=== PATIENT | male | born 1980 | race Caucasian/White ===

== ENCOUNTER 2020-11-26 18:29 | Emergency (ER) | payer OTHER ==
[~2020-11-26] VITALS: Ht 188 cm; Wt 103.0 kg
[2020-11-26] MEDS ORDERED: NORCO 5/325MG TABLET (BULK FOR ED) PO ONE (19:40)
[2020-11-26] MEDS ORDERED: HYDR-3713 PO (19:41)
[2020-11-26 20:22] VITALS: BP 127/77
--- NOTE | 2020-11-27 07:39 | REP ---
INDICATION: injury, pain COMPARISON: None. TECHNIQUE: Four views. FINDINGS: There is a nondisplaced boxer's fracture in the neck of the 5th digit metacarpal with the dorsal angulation at the fracture site. There is no dislocation. IMPRESSION: Fifth digit metacarpal boxer's fracture as described. <Electronically signed by Juan Antonio Stubbs > 11/27/20 0781
== END 2020-11-26 20:32 | disposition home or self-care (01) ==
LOC: M ED 18:29
DX: S62.306A Unspecified fracture of fifth metacarpal bone, right hand, initial encounter for closed fracture (principal); W22.8XXA Striking against or struck by other objects, initial encounter; Y92.89 Other specified places as the place of occurrence of the external cause; Y99.0 Civilian activity done for income or pay

== ENCOUNTER → 2021-04-13 | Outpatient (CLI) | payer OTHER ==
[~2021-04-13] MED LIST: HYDR-3713 PO; PROHANCE 279.3MG/ML 15ML VIAL As Ordered ONE; PROHANCE 279.3MG/ML 5ML VIAL As Ordered ONE
== END ==
LOC: M RAD 17:32
PROVIDERS: ATTEND Family Medicine
DX: M25.561 Pain in right knee (principal)
CPT/HCPCS: A9576; C8913

== ENCOUNTER → 2022-06-27 | Outpatient (CLI) | payer OTHER ==
[~2022-06-27] MED LIST changes: +ISOVUE-300 61% 50ML VIAL ONE; +LIDOCAINE 1% MDV 20ML VIAL ONE; -PROHANCE 279.3MG/ML 15ML VIAL As Ordered ONE; -PROHANCE 279.3MG/ML 5ML VIAL As Ordered ONE; +TRIAMCINOLONE ACETONIDE SUSP 40 MG/ML VIAL (J3301) ONE
== END ==
LOC: M PLAIMG 13:47
PROVIDERS: ATTEND Physician Assistant Surgical
DX: S73.122A Ischiocapsular ligament sprain of left hip, initial encounter (principal); X58.XXXA Exposure to other specified factors, initial encounter; Y92.9 Unspecified place or not applicable
CPT/HCPCS: 20610; 76000; J3301

== ENCOUNTER → 2023-12-17 | Outpatient (REF) ==
[~2023-12-17] MED LIST changes: -ISOVUE-300 61% 50ML VIAL ONE; -LIDOCAINE 1% MDV 20ML VIAL ONE; -TRIAMCINOLONE ACETONIDE SUSP 40 MG/ML VIAL (J3301) ONE
== END ==
LOC: M PLAIMG 12:59
PROVIDERS: ATTEND Nurse Practitioner Family
DX: M19.012 Primary osteoarthritis, left shoulder (principal); M25.531 Pain in right wrist; M25.562 Pain in left knee; R00.2 Palpitations; R07.9 Chest pain, unspecified; R06.02 Shortness of breath; R04.2 Hemoptysis; M75.32 Calcific tendinitis of left shoulder

== ENCOUNTER 2024-04-22 10:46 | Emergency (ER) | payer OTHER ==
[~2024-04-22] VITALS: Ht 188 cm; Wt 100.9 kg
[2024-04-22 11:16] LABS: BASO # 0.1 10^3/uL (0.0-0.2); BASO % 1.3 % (0.0-1.0); EOS # 0.1 10^3/uL (0.0-0.5); EOS % 2.3 % (0.0-3.0); HEMATOCRIT 42.4 % (42.0-52.0); HEMOGLOBIN 14.7 g/dl (13.5-17.5); LYMPH # 1.6 10^3/uL (1.5-5.0); LYMPH % 32.8 % (24.0-44.0); MEAN CORPUSCULAR HEMOGLOBIN 31.4 pg (27.0-33.0); MEAN CORPUSCULAR HGB CONC 34.7 g/dl (32.0-36.5); MEAN CORPUSCULAR VOLUME 90.6 fl (80.0-96.0); MONO # 0.5 10^3/uL (0.0-0.8); MONO % 10.9 % (2.0-8.0); NEUTROPHILS # 2.5 10^3/uL (1.5-8.5); NEUTROPHILS % 52.1 % (36.0-66.0); PLATELET COUNT, AUTOMATED 268 10^3/uL (150-450); RED BLOOD COUNT 4.68 10^6/uL (4.30-6.10); WHITE BLOOD COUNT 4.8 10^3/uL (4.0-10.0)
[2024-04-22] MEDS: ASPIRIN 81MG CHEW TABLET PO ONE (11:24)
[2024-04-22] MEDS: NS 500 ML IV ONE (11:24)
[2024-04-22 11:30] LABS: INR 1.04; PARTIAL THROMBOPLASTIN TIME 25.2 SECONDS (24.8-34.2); PROTHROMBIN TIME 13.3 SECONDS (12.5-14.5)
[2024-04-22] MEDS: MAALOX 30 ML SUSP *UDC PO ONE (11:40)
[2024-04-22 11:42] LABS: CK-MB VALUE MASS < 1.0 NG/ML (<3.6)
[2024-04-22 11:43] LABS: LIPASE 29 U/L (12-53)
[2024-04-22 11:45] LABS: ALBUMIN 4.1 G/DL (3.2-5.2); ALKALINE PHOSPHATASE 63 U/L (46-116); ALT/SGPT 43 U/L (7.0-40); AST/SGOT 42 U/L (<34); BILIRUBIN,DIRECT 0.3 MG/DL (<0.4); BILIRUBIN,TOTAL 1.2 MG/DL (0.3-1.2); BLOOD UREA NITROGEN 10 MG/DL (9-23); CALCIUM LEVEL 9.7 MG/DL (8.5-10.1); CARBON DIOXIDE LEVEL 25 MMOL/L (20-31); CHLORIDE LEVEL 104 MMOL/L (98-107); CREATININE FOR GFR 0.98 MG/DL (0.70-1.30); GLOMERULAR FILTRATION RATE > 60.0 (>60); GLUCOSE, FASTING 99 MG/DL (60-100); POTASSIUM SERUM 4.2 MMOL/L (3.5-5.1); SODIUM LEVEL 139 MMOL/L (136-145); TOTAL PROTEIN 7.4 G/DL (5.7-8.2)
[2024-04-22 11:46] LABS: THYROID STIMULATING HORMONE 1.584 uIU/ML (0.55-4.78)
[2024-04-22] MEDS ORDERED: ISOVUE-370 76% 100ML VIAL As Ordered ONE (11:46)
[2024-04-22 11:47] LABS: FREE T4 1.35 NG/DL (0.89-1.76)
[2024-04-22 11:51] LABS: CPK CREATINE PHOSPHOKINASE 127 U/L (46-171); MB/CK RELATIVE INDEX 0.78 (< OR =4)
[2024-04-22 13:01] LABS: CK-MB VALUE MASS < 1.0 NG/ML (<3.6)
[2024-04-22 13:03] LABS: CPK CREATINE PHOSPHOKINASE 102 U/L (46-171); MB/CK RELATIVE INDEX 0.98 (< OR =4)
[2024-04-22 14:17] VITALS: BP 129/82; TEMP 97.2; O2SAT 96
== END 2024-04-22 14:26 | disposition home or self-care (01) ==
LOC: EDBD 10:46 → M ED 10:46
DX: R07.9 Chest pain, unspecified (principal); K59.00 Constipation, unspecified; K76.0 Fatty (change of) liver, not elsewhere classified; E78.5 Hyperlipidemia, unspecified; F41.9 Anxiety disorder, unspecified; F32.A Depression, unspecified; F17.200 Nicotine dependence, unspecified, uncomplicated
CPT/HCPCS: 71045; 71275; 74177; 80047; 80048; 80076; 82550; 82553; 83690; 84439; 84443; 84484; 85025; 85610; 85730; 93005; 93041; 94760; 99285; Q9967